=== PATIENT | female | born 1960 | race Two or more races ===

== ENCOUNTER 2025-01-28 15:37 | Emergency (ER) | payer OTHER ==
[~2025-01-28] VITALS: Ht 157.5 cm; Wt 62.2 kg
[2025-01-28 15:38] VITALS: RESP 16; TEMP 98.4
--- NOTE | 2025-01-28 16:26 | DVH ---
CHEST RADIOGRAPH Indication: Shortness of breath Technique: XY CHEST PORTABLE COMPARISON: None FINDINGS: The cardiac silhouette is enlarged. The lungs demonstrate bilateral patchy airspace opacities. The pu lmonary vasculature is prominent. There is no pleural effusion. There is no pneumothorax. Aortic athe rosclerotic disease. Thoracolumbar guerra rods. IMPRESSION: Cardiomegaly with pulmonary vascular congestion and bilateral patchy airspace opacities.
--- NOTE | 2025-01-28 16:38 | ED.PDOC ---
History of Present Illness HPI Comments 64 y/o F, with known medical history presents to the ED for CC of medication refill. Patient reports, that she has been out of various of her medications d/t recently moving from the [facility] and currently not having a PCP. Patient endorses, that d/t not being on medications she has developed symptoms of body aches with associated "clotting of the blood"; denies PMHx of sickle cell anemia. Patient denies fatigue weakness, chest pain, shortness of breath, palpitations, nausea, or vomiting. No other symptoms or modifying factors are present at this time. Vital signs were stable. Chief Complaint: High Blood Pressure Time Seen by MD: 16:00 Reviewed Notes: Nurses Notes, Medications, Allergies Allergies: Coded Allergies: Ampicillin (Verified Allergy, Unknown, 01/28/25) Home Meds Active Scripts Levetiracetam (Keppra) 500 Mg Tab, 1 TAB PO BID, #60 TAB 0 Refills Prov:SANDY ORTIZ PAC 01/28/25 Atorvastatin Calcium (Lipitor) 20 Mg Tab, 1 TAB PO DAILY, #30 TAB 0 Refills Prov:SANDY ORTIZ 01/28/25 Information Source: Patient Mode of Arrival: Ambulatory Severity: Mild Timing: Days Duration: Since onset Prehospital treatment: None Past Medical History PAST MEDICAL HISTORY: High Lipids, Seizures Surgical History: Unknown GROCERY BAGGER History: Unknown Family History Family History: Unknown Social History Smoker: Non-Smoker Alcohol: Denies ETOH Use Drugs: Denies Drug Use Lives In: Home Constitutional: denies: chills, diaphoresis, fatigue, fever, malaise, sweats, weakness, others EENTM: denies: blurred vision, double vision, ear bleeding, ear discharge, ear drainage, ear pain, ear ringing, eye pain, eye redness, hearing loss, mouth pain, mouth swelling, nasal discharge, nose bleeding, nose congestion, nose pain, photophobia, tearing, throat pain, throat swelling, voice changes, others Respiratory: denies: cough, hemoptysis, orthopnea, SOB at rest, shortness of breath, SOB with excertion, stridor, wheezing, others Cardiovascular: denies: chest pain, dizzy spells, diaphoresis, Dyspnea on exertion, edema, irregular heart beat, left arm pain, lightheadedness, palpitations, PND, syncope, others Gastrointestinal: denies: abdomen distended, abdominal pain, blood streaked bowels, constipated, diarrhea, dysphagia, difficulty swallowing, hematemesis, melena, nausea, poor appetite, poor fluid intake, rectal bleeding, rectal pain, vomiting, others Genitourinary: denies: abnormal vagina bleeding, burning, dyspareunia, dysuria, flank pain, frequency, hematuria, incontinence, pain, , vagina discharge, urgency, others Neurological: denies: dizziness, fainting, headache, left sided numbness, left sided weakness, numbness, paresthesia, pre-existing deficit, right sided numbness, right sided weakness, seizure, speech problems, tingling, tremors, weakness, others Musculoskeletal: reports: others (BODY-ACHES); denies: back pain, gout, joint pain, joint swelling, muscle pain, muscle stiffness, neck pain Integumetry: denies: bruises, change in color, change in hair/nails, dryness, laceration, lesions, lumps, rash, wounds, others Allergic/Immunocompromised: denies: Difficulty Healing, Frequent Infections, Hives, Itching, others Hematologic/Lymphatic: denies: anemia, blood clots, easy bleeding, easy bruising, swollen glands, others Endocrine: denies: excessive hunger, excessive sweating, excessive thirst, excessive urination, flushing, intolerance to cold, intolerance to heat, unexplained weight gain, unexplained weight loss, others Psychiatric: denies: anxiety, bipolar disorder, depression, hopeless, panic disorder, schizophrenia, sleepless, suicidal, others All Other Systems: Reviewed and Negative Physical Exam General Appearance: Mild Distress (Patient was in moderate distress due to some nonspecific global pain concerns. Patient was more concerned about receiving her medications.), Normal HEENT: Normal ENT Inspection, Pharynx Normal, TMs Normal Neck: Full Range of Motion, Non-Tender, Normal, Normal Inspection Respiratory: Chest Non-Tender, Lungs Clear, No Accessory Muscle Use, No Respiratory Distress, Normal Breath Sounds Cardiovascular: No Edema, No JVD, No Murmur, No Gallop, Normal Peripheral Pulses, Regular Rate/Rhythm Breast Exam: Deferred Gastrointestinal: No Organomegaly, Non Tender, No Pulsatile Mass, Normal Bowel Sounds, Soft Genitalia: Deferred Pelvic: Deferred Rectal: Deferred Extremities: No calf tenderness, Normal capillary refill, No pedal edema, Other (Patient displays upper back kyphosis. No additional pain on palpation of any bony concerns.) Neurologic: Alert, No Motor Deficits, Normal Affect, Normal Mood, No Sensory Deficits Cerebellar Function: NOT DONE Reflexes: NOT DONE Skin: Dry, Normal Color, Warm Lymphatic: No Adenopathy Was a procedure done? Was a procedure done?: No Differential Dx Considerations may include: MEDICATION REFILL, global pain syndrome, sepsis, electrolyte abnormality X-Ray, Labs, Meds, VS Vital Signs Date Time Temp Pulse Resp B/P (MAP) Pulse Ox O2 Delivery O2 Flow Rate FiO2 01/28/25 18:32 66 01/28/25 18:31 168/79 (108) 95 01/28/25 15:53 76 01/28/25 15:38 98.4 99 16 145/78 80 98.4 Lab Test 01/28/25 16:36 01/28/25 16:31 Range/Units Urine Color Light-yellow Yellow Urine Clarity Clear Clear Urine pH 6.0 5.0-9.0 Urine Specific [place] 1.028 1.001-1.035 Urine Protein Negative Negative Urine Ketones Negative Negative Urine Blood Negative Negative /uL Urine Nitrite Negative Negative Urine Bilirubin Negative Negative Urine Urobilinogen Normal Negative mg/dL Urine Leukocyte Esterase 2+ Negative /uL Urine RBC 2 0 - 4 /hpf Urine Microscopic WBC 11 H 0-5 /HPF Urine Squamous Epithelial Cells Few <5 /hpf Urine Bacteria None seen None Seen /hpf Urine Glucose Normal Normal mg/dL White Blood Count 4.1 L 4.4-10.8 10^3/uL Red Blood Count 4.69 4.0-5.20 10^6/uL Hemoglobin 14.0 12.2-16.2 g/dL Hematocrit 42.0 36.0-46.0 % Mean Corpuscular Volume 89.5 80.0-100.0 fL Mean Corpuscular Hemoglobin 30.0 28.0-32.0 pg Mean Corpuscular Hemoglobin Concent 33.5 32.0-36.0 g/dL Red Cell Distribution Width 17.5 H 11.8-14.3 % Platelet Count 139 L 140-450 10^3/uL Mean Platelet Volume 11.5 H 6.9-10.8 fL Neutrophils (%) (Auto) 47.0 37.0-80.0 % Lymphocytes (%) (Auto) 42.2 10.0-50.0 % Monocytes (%) (Auto) 8.3 0.0-12.0 % Eosinophils (%) (Auto) 1.7 0.0-7.0 % Basophils (%) (Auto) 0.8 0.0-2.0 % Neutrophils # (Auto) 1.9 1.6-8.6 10 ^3/uL Lymphocytes # (Auto) 1.7 0.4-5.4 10 ^3/uL Monocytes # (Auto) 0.3 0-1.3 10 ^3/uL Eosinophils # (Auto) 0.1 0-0.8 10 ^3/uL Basophils # (Auto) 0 0-0.2 10 ^3/uL Nucleated Red Blood Cells 0.0 % Prothrombin Time 10.2 9.3-11.8 sec Prothrombin Time INR 0.96 0.9-1.15 Activated Partial Thromboplast Time 27.6 24.5-34.5 SEC Sodium Level 143 136-145 mmol/L Potassium Level 4.4 3.5-5.1 mmol/L Chloride Level 109 H 98-107 mmol/L Carbon Dioxide Level 24 20-31 mmol/L Anion Gap 10 5-15 Blood Urea Nitrogen 23 9-23 mg/dL Creatinine 0.89 0.550-1.02 mg/dL Glomerular Filtration Rate Calc 73 >90 mL/min BUN/Creatinine Ratio 25.8 H 10.0-20.0 Serum Glucose 85 74-106 mg/dL Calcium Level 9.8 8.7-10.4 mg/dL Troponin I High Sensitivity 12 </=34 ng/L [place] [address] Ph: [phone] DIAGNOSTIC IMAGING Diagnostic Imaging Report : [id number] Signed PATIENT: MAGDALENA LAURA ACCT: [id number] UNIT: [id number] : 1960 LOC: ER ROOM / BED: / AGE / SEX: 64 / F ADM STATUS: REG ER SERVICE 1554 ORDERING PHYSICIAN: SANDY ORTIZ PAC PROCEDURE(s): CXRP - CHEST PORTABLE REASON: Shortness of breath ORDER NUMBER(s): [id number], ACCESSION NUMBER(s): [id number] CHEST RADIOGRAPH Indication: Shortness of breath Technique: XY CHEST PORTABLE COMPARISON: None FINDINGS: The cardiac silhouette is enlarged. The lungs demonstrate bilateral patchy airspace opacities. The pulmonary vasculature is prominent. There is no pleural effusion. There is no pneumothorax. Aortic atherosclerotic disease. Thoracolumbar guerra rods. IMPRESSION: Cardiomegaly with pulmonary vascular congestion and bilateral patchy airspace opacities. ATED BY: MARTINA WHITLOCK MD DICTATED DATE/TIME: 01/28/251626 SIGNED BY: MARTINA WHITLOCK MD SIGNED DATE/TIME: 01/28/251626 CC: X-Ray, Labs, Meds, VS Comment All studies performed the ED were evaluated by me personally. Serum laboratori es studies were unremarkable for any systemic concerns. Urinalysis confirmed a urinary tract infection. EKG revealed a sinus rhythm with a rate of 76. VT interval 138 and QT interval 394. Normal EKG. Chest x-ray was remarkable for some pulmonary vascular congestion. Patient will need to follow up with the primary care provider for discussions. PT and INR were unremarkable for any clotting concerns and therefore, patient will need to follow up with the primary care provider for discussions related to blood thinning agents. I will fill the patient's Lipitor and Keppra concerns. Advised patient utilize antibiotics as directed until completion. Time of 1ST Reevaluation: 18:23 Reevaluation 1ST: Improved Consultation: PCP Patient Education/Counseling: Diagnosis, Treatment Family Education/Counseling: Diagnosis, Treatment, No Family Present SEPSIS Sepsis Screen Date sepsis recognized/suspect: Jan 28, 2025 Time Sepsis recognized/suspect: 1538 Recent Procedure: No On Antibiotic Therapy: No Respiratory Rate >20: No Heart Rate >90: No Temp<36 C (96.8 F) or >38.3 C: No SBP <90 or MAP <65 mmHG: No New Acute Mental Status Change: No Is the patient on CPAP, BIPAP,: No Physician Orders Chest Portable (01/28/25 15:54) Electrocardigram (01/28/25 15:54) Vital Signs Date Time Temp Pulse Resp B/P (MAP) Pulse Ox O2 Delivery O2 Flow Rate FiO2 01/28/25 18:32 66 01/28/25 18:31 168/79 (108) 95 01/28/25 15:53 76 01/28/25 15:38 98.4 99 16 145/78 80 98.4 Laboratory Tests Test 01/28/25 16:31 White Blood Count 4.1 10^3/uL (4.4-10.8) L Departure 1 Departure Time of Disposition: 18:23 Impression: Primary Impression: Chronic pain Additional Impressions: Encounter for medication refill UTI (urinary tract infection) Disposition: HOME / SELF CARE / HOMELESS Condition: Stable Additional Instructions: Advised patient to follow up with a primary care provider to establish proper long-term management of her multiple comorbidities. e-Prescriptions Nitrofurantoin Monohydrate Mac (Macrobid) 100 Mg Cap 100 MG PO BID for 5 Days, #10 CAP Prov: SANDY ORTIZ PAC 01/28/25 Amlodipine Besylate (NORVASC TABLET) 5 Mg Tb 1 TAB PO DAILY, #30 TAB 0 Refills Prov: SANDY ORTIZ PAC 01/28/25 Levetiracetam (Keppra) 500 Mg Tab 1 TAB PO BID, #60 TAB 0 Refills Prov: SANDY ORTIZ PAC 01/28/25 Atorvastatin Calcium (Lipitor) 20 Mg Tab 1 TAB PO DAILY, #30 TAB 0 Refills Prov: SANDY ORTIZ PAC 01/28/25 Discharged With: Self, Friend Critical Care Note Critical Care Time?: No Stability Stability form required: No Heart Score Heart Score: Heart Score Response (Comments) Value History N/A 0 EKG N/A 0 Age N/A 0 Risk Factors N/A 0 Troponin N/A 0 Total 0 I personally scribed for DIANASANDY B PAC ([email or web address]) on 01/28/25 at 16:38. Electronically submitted by Kelly Main ([email or web address]). I personally scribed for DIANA,SANDY B PAC ([email or web address]) on 01/28/25 at 16:52. Electronically submitted by Kelly Main ([email or web address]). I personally scribed for DIANASANDY B PAC ([email or web address]) on 01/28/25 at 18:04. Electronically submitted by Kelly Main ([email or web address]). I personally scribed for DIANASANDY B PAC ([email or web address]) on 01/28/25 at 18:05. Electronically submitted by Kelly Main [email or web address]). SANDY ORTIZ [facility] Jan 28, 2025 16:38
[2025-01-28 16:45] LABS: Hematocrit 42.0 % (36.0-46.0); Hemoglobin 14.0 g/dL (12.2-16.2); Mean Corpuscular Hemoglobin 30.0 pg (28.0-32.0); Mean Corpuscular Volume 89.5 fL (80.0-100.0); Nucleated Red Blood Cells % 0.0 %
[2025-01-28 16:53] LABS: Potassium 4.4 mmol/L (3.5-5.1); Sodium 143 mmol/L (136-145)
[2025-01-28 16:54] LABS: Anion Gap 10 (5-15); Calcium 9.8 mg/dL (8.7-10.4); Carbon Dioxide 24 mmol/L (20-31)
[2025-01-28 16:56] LABS: Chloride 109 mmol/L (98-107)
[2025-01-28 16:59] LABS: BUN/Creatinine Ratio 25.8 (10.0-20.0); Blood Urea Nitrogen 23 mg/dL (9-23); Glucose 85 mg/dL (74-106); INR 0.96 (0.9-1.15); Partial Thromboplastin Time 27.6 SEC (24.5-34.5); Prothrombin Time 10.2 sec (9.3-11.8)
[2025-01-28 18:12] LABS: Urine Protein, UAD Negative (Negative)
[2025-01-28] MEDS ORDERED: LEVE500T40 PO (18:25)
[2025-01-28] MEDS ORDERED: ATOR20TA PO (18:25)
[2025-01-28 18:31] VITALS: BP 168/79; O2SAT 95
[2025-01-28 18:32] VITALS: PULSE 66
[2025-01-28] MEDS ORDERED: NITR-87 PO (18:47)
[2025-01-28] MEDS ORDERED: AML5T PO (18:47)
--- NOTE | 2025-01-28 19:03 | ECG ---
[facility] Test Date: 2025-01-28 Test Time: 15:53:42 Pat Name: MAGDALENA LAURA Department: ED Room: Gender: F Knifeman: DR BECKETT: 1960 Requested By: SANDY ORTIZ Order Number: [id number] Reading MD: Measurements Intervals [place] Rate: 76 P: 61 SD: 138 QRS: 63 QRSD: 89 T: 44 QT: 394 QTc: 444 Interpretive Statements Sinus rhythm Please click the below link to view image of tracing.
== END 2025-01-28 19:06 | disposition home or self-care (01) ==
LOC: ER 15:48
DX: G89.29 Other chronic pain (principal); M79.18 Myalgia, other site; N39.0 Urinary tract infection, site not specified; E78.5 Hyperlipidemia, unspecified; D69.6 Thrombocytopenia, unspecified; Z76.0 Encounter for issue of repeat prescription; Z79.899 Other long term (current) drug therapy; Z88.0 Allergy status to penicillin
CPT/HCPCS: 36415; 71045; 80048; 81001; 84484; 85025; 85610; 85730; 93005